=== PATIENT | female | born 1975 | race Caucasian/White ===

== ENCOUNTER 2019-02-14 01:38 | Emergency (ER) | payer OTHER ==
[~2019-02-14] VITALS: Ht 157.5 cm; Wt 99.8 kg
[~2019-02-14 01:38] MED LIST: ESOM40CA39 PO; MON10T PO
[2019-02-14 03:17] LABS: Urine Bacteria FEW /hpf (None Seen); Urine Blood Negative /uL (Negative); Urine Mucus FEW (None Seen); Urine WBC 2 /hpf (0 - 5)
[2019-02-14] MEDS ORDERED: cefTRIAXone SOD 1,000 MG VL IM ONE (03:30)
[2019-02-14 05:11] VITALS: BP 114/68
== END 2019-02-14 05:17 | disposition home or self-care (01) ==
LOC: EDBD 01:38 → ER 01:41
DX: J01.90 Acute sinusitis, unspecified (principal)
CPT/HCPCS: 71045; 81001; 96372; 99284; J0696

== ENCOUNTER 2020-02-06 15:34 | Emergency (ER) | payer OTHER ==
[~2020-02-06] VITALS: Ht 157.5 cm; Wt 99.8 kg
[2020-02-06 20:05] VITALS: BP 120/71
== END 2020-02-06 22:29 | disposition home or self-care (01) ==
LOC: ER 15:34
DX: U07.1 COVID-19 (principal); J06.9 Acute upper respiratory infection, unspecified
CPT/HCPCS: 36415; 71045; 87426

== ENCOUNTER 2020-05-16 01:48 | Emergency (ER) | payer OTHER ==
[~2020-05-16] VITALS: Ht 157.5 cm; Wt 99.8 kg
[2020-05-16] MEDS ORDERED: predniSONE 20 MG TAB PO ONE (02:30)
[2020-05-16 02:33] VITALS: BP 149/57
== END 2020-05-16 02:31 | disposition home or self-care (01) ==
LOC: EDBD 01:48 → ER 01:50
DX: T78.40XA Allergy, unspecified, initial encounter (principal); J45.909 Unspecified asthma, uncomplicated; F41.9 Anxiety disorder, unspecified; X58.XXXA Exposure to other specified factors, initial encounter
CPT/HCPCS: 99283; J7512

== ENCOUNTER 2020-05-22 11:47 | Emergency (ER) | payer OTHER ==
[~2020-05-22] VITALS: Ht 157.5 cm; Wt 98.9 kg
[2020-05-22 12:50] VITALS: BP 141/84
[2020-05-22] MEDS ORDERED: diphenhdrAMINE HCL 50 MG/1 ML VL IM ONE (14:00)
[2020-05-22] MEDS ORDERED: methylPREDNISolone SOD SUCC 125 MG/2 ML VL IM ONE (14:00)
== END 2020-05-22 14:37 | disposition home or self-care (01) ==
LOC: ER 11:47
DX: L50.9 Urticaria, unspecified (principal); F41.9 Anxiety disorder, unspecified; J45.909 Unspecified asthma, uncomplicated; Z79.899 Other long term (current) drug therapy
CPT/HCPCS: 99283; J1200; J2930

== ENCOUNTER 2020-05-28 15:08 | Emergency (ER) | payer OTHER ==
[~2020-05-28] VITALS: Ht 157.5 cm; Wt 97.5 kg
[2020-05-28] MEDS ORDERED: diphenhdrAMINE HCL 50 MG/1 ML VL IM ONE (16:00)
[2020-05-28 16:34] VITALS: BP 130/79
== END 2020-05-28 16:45 | disposition home or self-care (01) ==
LOC: ER 15:08
DX: L50.9 Urticaria, unspecified (principal); Z79.899 Other long term (current) drug therapy
CPT/HCPCS: 96372; 99283; J1200

== ENCOUNTER 2020-06-07 23:11 | Emergency (ER) | payer OTHER ==
[~2020-06-07] VITALS: Ht 157.5 cm; Wt 50.3 kg
[2020-06-07 23:19] VITALS: BP 143/91
[2020-06-08] MEDS ORDERED: diphenhdrAMINE HCL 50 MG/1 ML VL IM ONE (04:15)
== END 2020-06-08 04:42 | disposition home or self-care (01) ==
LOC: ER 23:11
DX: T78.40XA Allergy, unspecified, initial encounter (principal); F42.8 Other obsessive-compulsive disorder; F41.9 Anxiety disorder, unspecified; J45.909 Unspecified asthma, uncomplicated; X58.XXXA Exposure to other specified factors, initial encounter
CPT/HCPCS: 96372; 99283; J1200

== ENCOUNTER 2020-09-13 16:31 | Emergency (ER) | payer OTHER ==
[~2020-09-13] VITALS: Ht 157.5 cm; Wt 98.4 kg
[2020-09-13] MEDS ORDERED: ACETAMINOPHEN 325 MG TAB PO ONE (17:15)
[2020-09-13 18:25] LABS: Basophils # (auto) 0 10 ^3/uL (0-0.2); Eosinophils # (auto) 0 10 ^3/uL (0-0.8); Hemoglobin 10.8 g/dL (12.2-16.2); Lymphocytes # (auto) 1.3 10 ^3/uL (0.4-5.4); White Blood Cell 17.9 10^3/uL (4.4-10.8)
[2020-09-13 18:26] LABS: Basophils % (auto) 0.1 % (0.0-2.0); Eosinophils % (auto) 0.1 % (0.0-7.0); Hematocrit 32.9 % (36.0-46.0); Lymphocytes % (auto) 7.4 % (10.0-50.0); Mean Corpuscular Hemoglobin 24.9 pg (28.0-32.0); Mean Corpuscular Hgb Conc. 32.8 g/dL (32.0-36.0); Mean Corpuscular Volume 75.8 fL (80.0-100.0); Monocytes # (auto) 0.8 10 ^3/uL (0-1.3); Monocytes % (auto) 4.7 % (0.0-12.0); Neutrophils # (auto) 15.7 10 ^3/uL (1.6-8.6); Neutrophils % (auto) 87.7 % (37.0-80.0); Red Blood Cells 4.34 10^6/uL (4.0-5.20); Red Cell Distribution Width 16.8 % (11.8-14.3)
[2020-09-13 18:39] LABS: Albumin 3.4 g/dL (3.4-5.0); Calcium 8.6 mg/dL (8.5-10.1); Potassium 3.8 mmol/L (3.5-5.1)
[2020-09-13 18:42] LABS: BUN/Creatinine Ratio 12.5; Bilirubin, Total 0.5 mg/dL (0.2-1.0); Total Protein 7.6 g/dL (6.4-8.2)
[2020-09-13] MEDS ORDERED: methylPREDNISolone SOD SUCC 125 MG/2 ML VL IM ONE (19:45)
[2020-09-13] MEDS ORDERED: cefTRIAXone SOD 1,000 MG VL IM ONE (19:45)
[2020-09-13 20:36] VITALS: BP 144/88
== END 2020-09-13 20:46 | disposition home or self-care (01) ==
LOC: ER 16:31 → EDBD 16:31 → ER 20:41
DX: J06.9 Acute upper respiratory infection, unspecified (principal); Z20.822 Contact with and (suspected) exposure to COVID-19
CPT/HCPCS: 36415; 71045; 80053; 85025; 85049; 87426; 93005; 96372; 99285; J0696; J2930

== ENCOUNTER 2022-10-26 08:30 | Inpatient (IN) | payer OTHER ==
[~2022-10-26] VITALS: Ht 157.5 cm; Wt 100.2 kg
[2022-10-26] VITALS (10 sets, daily range): BP systolic 144–151; BP diastolic 91–103; PULSE 85–112; RESP 16–20; TEMP 98; O2SAT 89–94
[~2022-10-26 08:30] MED LIST changes: +ALBUAER3 IN; +BENZ100C97 PO; +FLUT500M2 IN; +IBUP-1456 PO; +OLAN1TAB82 PO; +OMEP20TA PO; +TIOT1AER2 IN
[2022-10-26] MEDS ORDERED: ACETAMINOPHEN IV 1000 MG/100ML (10MG/ML) IV ONE (09:00)
[2022-10-26] MEDS ORDERED: CELECOXIB 100 MG CAP PO ONE (09:00)
[2022-10-26] MEDS ORDERED: PREGABALIN CAPSULE 75 MG CAP PO ONE (09:00)
[2022-10-26] MEDS ORDERED: fentaNYL CITRATE 100 MCG/2 ML VL ONE (09:33)
[2022-10-26] MEDS ORDERED: MIDAZOLAM HCL 2MG/2ML 2ml VIAL (1mg/ml) ONE (09:33)
[2022-10-26] MEDS ORDERED: KETOROLAC TROMETH 30 MG/ML 1ML VIAL ONE ×2 (09:33→12:02)
[2022-10-26] MEDS ORDERED: PROPOFOL 10 MG/ML 20 ML IV ONE ×2 (09:34→11:51)
[2022-10-26] MEDS ORDERED: ONDANSETRON HCL 4 MG/2 ML VIAL ONE (09:34)
[2022-10-26] MEDS ORDERED: GLYCOPYRROLATE 0.2 MG/ML 1ML VIAL ONE (09:34)
[2022-10-26] MEDS ORDERED: ePHEDrine SULFATE 50 MG/ML AMP ONE (09:34)
[2022-10-26] MEDS ORDERED: MORPHINE SULF PF 5 MG/10 ML VIAL ONE ×2 (09:35→12:02)
[2022-10-26] MEDS ORDERED: ceFAZolin 1GM/50ML 100 ML IV ONE (09:41)
[2022-10-26] MEDS ORDERED: DexAMETHasone SOD PHOS 4 MG/1ML SDV INJ ONE (10:32)
[2022-10-26] MEDS ORDERED: FAMOTIDINE (10MG/ML) 2ML VL IV ONE (10:41)
[2022-10-26] MEDS ORDERED: BUPIVACAINE 0.5% P/F INJ 10 ML VIAL ONE (10:41)
[2022-10-26] MEDS ORDERED: TRANEXAMIC ACID 20 ML ONE (11:25)
[2022-10-26] MEDS ORDERED: VANCOMYCIN HCL 1000 MG VL ONE (12:01)
[2022-10-26] MEDS ORDERED: BUPIVACAINE 0.25% INJ 50ML VIAL ONE (12:02)
[2022-10-26] MEDS ORDERED: MEPERIDINE HCL (25 MG/ML) 1ML VIAL ONE (12:26)
[2022-10-26] MEDS ORDERED: MORPHINE SULFATE INJ 2 MG/ml SYRG IV PRN (13:45)
[2022-10-26] MEDS ORDERED: NITROGLYCERIN 0.4 MG SL TAB SL PRN (13:45)
[2022-10-26] MEDS ORDERED: ALBUTEROL SULF HFA 90MCG INH 200DOSE IN SCH (13:45)
[2022-10-26] MEDS ORDERED: ONDANSETRON HCL 4 MG/2 ML VIAL IV PRN (13:45)
[2022-10-26] MEDS ORDERED: diphenhdrAMINE HCL 50 MG/1 ML VL IV PRN (14:15)
[2022-10-26] MEDS ORDERED: NALOXONE HCL 0.4 MG/ML VIAL IV PRN (14:15)
[2022-10-26] MEDS ORDERED: KETOROLAC TROMETH 30 MG/ML 1ML VIAL IV PRN (14:15)
[2022-10-26] MEDS ORDERED: DexAMETHasone SOD PHOS 10MG/1ML VIAL INJ IV PRN (14:15)
[2022-10-26] MEDS ORDERED: ROPIVACAINE 0.5% (5MG/ML) 20ML AMPULE IJ ONE (14:28)
[2022-10-26] MEDS ORDERED: LIDOCAINE 2% (LOCAL ANESTH.) PF 5ml SDV ONE (14:34)
[2022-10-26 15:51] LABS: Potassium 3.9 mmol/L (3.5-5.1)
[2022-10-26] MEDS: IBUPROFEN 800 MG TAB PO SCH ×2 (17:02→22:14)
[2022-10-26] MEDS: ceFAZolin 1GM/50ML 50 ML IV SCH ×2 (17:02→20:04)
[2022-10-26] MEDS: SODIUM CHLOR 0.9% PF (SALINE LOCK) 10ML VIAL/SYR IV SCH ×2 (17:03→22:15)
[2022-10-26] MEDS: LACTATED RINGER'S 1,000 ML IV SCH ×2 (17:03→23:45)
[2022-10-26] MEDS: ONDANSETRON HCL 4 MG/2 ML VIAL IV PRN (17:12)
[2022-10-26] MEDS: HYDROmorphone HCL 2 MG/ML VL/or syr IV PRN (20:17)
[2022-10-26] MEDS: DOCUSATE SOD 100 MG CAP PO SCH (22:14)
[2022-10-27] VITALS (20 sets, daily range): BP systolic 110–167; BP diastolic 64–106; PULSE 98–130; RESP 18–22; TEMP 37.2; O2SAT 90–97
[2022-10-27] MEDS: ceFAZolin 1GM/50ML 50 ML IV SCH (02:16)
[2022-10-27] MEDS: ONDANSETRON HCL 4 MG/2 ML VIAL IV PRN ×3 (04:19→21:26)
[2022-10-27] MEDS: OXYCODONE W/ ACETAMINOPHEN 5/325MG TABLET PO PRN ×2 (04:19→21:27)
[2022-10-27] MEDS ORDERED: hydrALAZINE HCL 10 MG TAB PO PRN (06:00)
[2022-10-27] MEDS: SODIUM CHLOR 0.9% PF (SALINE LOCK) 10ML VIAL/SYR IV SCH ×3 (06:25→22:00)
[2022-10-27] MEDS: IBUPROFEN 800 MG TAB PO SCH ×3 (06:25→21:27)
[2022-10-27] MEDS: LACTATED RINGER'S 1,000 ML IV SCH ×2 (09:45→19:45)
[2022-10-27] MEDS ORDERED: PATIENTS OWN MEDICATION (Omeprazole (Gnp Omeprazole) 20 MG) PO SCH (10:00)
[2022-10-27] MEDS: Benzonatate 100 MG CAPSULES PO SCH (10:00)
[2022-10-27] MEDS: DOCUSATE SOD 100 MG CAP PO SCH ×2 (10:48→21:27)
[2022-10-27] MEDS: PANTOPRAZOLE 40 MG TAB PO SCH (10:49)
[2022-10-27] MEDS: MONTELUKAST SODIUM 10 MG TAB PO SCH (10:49)
[2022-10-27] MEDS ORDERED: ALBUTEROL SULF 2.5 MG/0.5ML(0.5%) NEB SOLN NEB PRN (11:15)
[2022-10-27] MEDS: ENOXAPARIN SOD 40 MG/0.4 ML SYRINGE SC SCH (11:47)
[2022-10-27] MEDS: HYDROmorphone HCL 2 MG/ML VL/or syr IV PRN (14:39)
[2022-10-28] VITALS (7 sets, daily range): BP systolic 115–130; BP diastolic 69–73; PULSE 90–120; RESP 16–18; TEMP 37.2; O2SAT 92–94
[2022-10-28] MEDS: IBUPROFEN 800 MG TAB PO SCH ×2 (06:20→14:47)
[2022-10-28] MEDS: SODIUM CHLOR 0.9% PF (SALINE LOCK) 10ML VIAL/SYR IV SCH ×2 (06:20→14:00)
[2022-10-28] MEDS: OXYCODONE W/ ACETAMINOPHEN 5/325MG TABLET PO PRN ×2 (06:25→14:47)
[2022-10-28] MEDS: ONDANSETRON HCL 4 MG/2 ML VIAL IV PRN ×2 (06:25→14:46)
[2022-10-28] MEDS: LACTATED RINGER'S 1,000 ML IV SCH ×2 (08:19→15:45)
[2022-10-28] MEDS: Benzonatate 100 MG CAPSULES PO SCH (08:20)
[2022-10-28] MEDS: DOCUSATE SOD 100 MG CAP PO SCH (09:57)
[2022-10-28] MEDS: PANTOPRAZOLE 40 MG TAB PO SCH (09:57)
[2022-10-28] MEDS: MONTELUKAST SODIUM 10 MG TAB PO SCH (09:57)
[2022-10-28] MEDS: ENOXAPARIN SOD 40 MG/0.4 ML SYRINGE SC SCH (09:58)
== END 2022-10-28 18:30 | DRG 470 ==
LOC: SUR 08:30 → OVERFLOW 13:34 → CENTRAL 15:50
PROVIDERS: ADMIT Orthopaedic Surgery Adult Reconstructive Orthopaedic Surgery; ATTEND Orthopaedic Surgery Adult Reconstructive Orthopaedic Surgery
PROC: 0SRD0J9 Replacement of Left Knee Joint with Synthetic Substitute, Cemented, Open Approach (ICD-10-PCS; principal; 2022-10-26 11:07)
DX: M17.12 Unilateral primary osteoarthritis, left knee (principal)
CPT/HCPCS: 36415; 73562; 80048; 81025; 85049; 86850; 86900; 86901; 97110; 97116; 97163; 97530; G0378; J0131; J0690; J1100; J1885; J2001; J2250; J2405; J2704; J3490

== ENCOUNTER 2024-03-05 15:47 | Emergency (ER) | payer OTHER | END 2024-03-05 15:59 | disposition left against medical advice (07) | LOC: ER 15:47 | DX: R10.9 Unspecified abdominal pain (principal); Z53.21 Procedure and treatment not carried out due to patient leaving prior to being seen by health care provider ==